=== PATIENT | female | born 1950 | race Caucasian/White ===

== ENCOUNTER → 2018-07-12 | Outpatient (CLI) | payer MEDICARE ==
--- NOTE | 2018-07-15 07:01 | MM ---
Reason for exam: screening (asymptomatic). Last mammogram was performed 3 years and 2 months ago. History: Patient is postmenopausal. Right US Cyst Aspiration of the right breast, August 21, 2007. Cyst aspiration of the left breast. 2 cyst aspirations of the right breast. Excisional biopsy of the left breast. Excisional biopsy of the right breast. Physical Findings: A clinical breast exam by your physician is recommended on an annual basis and results should be correlated with mammographic findings. MG 3D Screening Mammo W/Cad Bilateral CC and MLO view(s) were taken. Prior study comparison: May 07, 2015, bilateral MG screening mammo w CAD. July 13, 2010, bilateral digital screening mammogram. The breast tissue is heterogeneously dense. This may lower the sensitivity of mammography. Stable benign calcifications. There is chronic nodularity bilaterally. No significant changes when compared with prior studies. ASSESSMENT: Benign, BI-RAD 2 RECOMMENDATION: Routine screening mammogram of both breasts in 1 year.
== END | disposition home or self-care (01) ==
LOC: RADMAMWWP 13:06
PROVIDERS: ATTEND Family Medicine
DX: Z12.31 Encounter for screening mammogram for malignant neoplasm of breast (principal)
CPT/HCPCS: 77063; 77067

== ENCOUNTER → 2021-09-09 | Outpatient (CLI) | payer MEDICARE ==
--- NOTE | 2021-09-10 12:58 | ECHOF ---
Referral Reason:R01.1 cardiac murmur MEASUREMENTS -------- HEIGHT: 152.4 cm WEIGHT: 83.9 kg BP: IVSd: 1.1 cm (0.6 - 1.1) LVIDd: 4.3 cm (3.9 - 5.3) LVPWd: 1.3 cm (0.6 - 1.1) EDV(Teich): 82 ml IVSs: 1.6 cm LVIDs: 3.4 cm LVPWs: 1.1 cm %IVS Thck: 42 % ESV(Teich): 47 ml EF(Teich): 43 % %FS: 21 % SV(Teich): 35 ml LA Diam: 3.5 cm (2.7 - 3.8) RVIDd: 2.7 cm (< 3.3) LALs A4C: 5.0 cm LAAs A4C: 19.0 cm LAESV A-L A4C: 62 ml LAESV MOD A4C: 59 ml LALs A2C: 5.1 cm LAAs A2C: 16.4 cm LAESV A-L A2C: 45 ml LAESV MOD A2C: 43 ml LAESV(A-L): 53 ml LAESV Index (A-L): 29.35 ml/m Ao Diam: 2.7 cm (2.0 - 3.7) LA Diam: 4.1 cm (2.7 - 3.8) AV Cusp: 2.2 cm (1.5 - 2.6) EPSS: 0.2 cm MV E Zack: 0.52 m/s MV DecT: 366 ms MV Dec [place]: 1.4 m/s MV A Zack: 0.90 m/s MV E/A Ratio: 0.58 MV PHT: 106 ms TR Vmax: 1.21 m/s TR maxP.82 mmHg RAP: 5.00 mmHg RVSP: 10.82 mmHg MV EF SLOPE: 64.48 mm/s (70 - 150) MV EXCURSION: 14.23 mm (> 18.000) FINDINGS -------- Sinus rhythm. This was a technically good study. LV size, wall thickness and systolic function are normal, with an EF greater than 55%. The left aaron tricular size is normal. The right ventricle is normal in size. LA is midly dilated 29-33ml/m2. The right atrial size is normal. There is mild aortic valve sclerosis. There is no evidence of aortic regurgitation. Mild mitral regurgitation is present. Mild tricuspid regurgitation present. Right ventricular systolic pressure is normal at < 35 mmHg. There is no pulmonic regurgitation present. Echo free space indicative of a pericardial fat pad. CONCLUSIONS -------- 1. LV size, wall thickness and systolic function are normal, with an EF greater than 55%. 2. The left ventricular size is normal. 3. The right ventricle is normal in size. 4. LA is midly dilated 29-33ml/m2. 5. The right atrial size is normal. 6. There is mild aortic valve sclerosis. 7. Mild mitral regurgitation is present. 8. Mild tricuspid regurgitation present. 9. There is no pulmonic regurgitation present. 10. Echo free space indicative of a pericardial fat pad. MECHANICAL SYSTEMS ENGINEER: Kinjal Gallegos RDCS
--- NOTE | 2021-09-14 13:37 | HM ---
HOLTER MONITOR REPORT No diary was provided. Predominant rhythm appears to be sinus with a heart rate ranging from 39 to 104 beats per minute with average heart rate of 63 beats per minute. Heart rate of less than 60 was noted for about 40% of the time. There were rare isolated PACs and PVCs. No significant ventricular arrhythmia was noted. There is a 3- beat run of PAT noted. Isolated PVCs were noted. There were rare ventricular couplets noted. No diary was provided. FINAL IMPRESSION: Predominant rhythm is sinus with average heart rate of 60 beats per minute. Sinus bradycardia was noted. No diary and hence no comment about symptoms. Isolated PACs and PVCs infrequently, 3-beat run of PAT noted. No significant pauses. MMODL / IJN: [id number] /
== END | disposition home or self-care (01) ==
LOC: RADECHMAIN 08:15
PROVIDERS: ATTEND Family Medicine
DX: I49.3 Ventricular premature depolarization (principal); I49.1 Atrial premature depolarization; I35.8 Other nonrheumatic aortic valve disorders
CPT/HCPCS: 93225; 93226; 93306